=== PATIENT | female | born 1975 | race Caucasian/White ===

== ENCOUNTER 2025-02-12 14:08 | Emergency (ER) | payer BC ==
[~2025-02-12] VITALS: Ht 162.6 cm; Wt 77.1 kg
[2025-02-12 14:14] VITALS: BP 129/81; TEMP 98
[2025-02-12] MEDS ORDERED: DOXY100C2 PO (14:27)
[2025-02-12 14:46] VITALS: O2SAT 99
== END 2025-02-12 14:47 | disposition home or self-care (01) ==
LOC: ER 14:24
DX: L03.311 Cellulitis of abdominal wall (principal)